=== PATIENT | female | born 1995 | race Hispanic/Latino ===

== ENCOUNTER 2025-01-06 21:31 | Emergency (ER) | payer BC ==
[~2025-01-06] VITALS: Ht 175.3 cm; Wt 95.3 kg
[2025-01-06 21:32] VITALS: TEMP 97.7
--- NOTE | 2025-01-06 21:36 | NUR ---
UA CUP PROVIDED
--- NOTE | 2025-01-06 21:37 | ERN ---
ED Note History of Present Illness Stated Complaint: LOWER ABD PAIN Time Seen by MD: 21:34 Dictation: PATIENT IS A 29-YEAR-OLD FEMALE HERE WITH A SUDDEN ONSET OF PERIUMBILICAL AND SUPRAPUBIC PAIN TENDERNESS ONSET 1 HOUR PRIOR TO ARRIVAL. SHE STATES SHE HAD BEEN OKAY DURING THE DAY WHEN THE ONSET OF THE PAIN OCCURRED. SHE DENIES FEVER CHILLS NAUSEA VOMITING. STATES SHE STILL HAS A OVARIES APPENDIX. STATES SHE HAD JUST SEEN HER [facility] DOCTOR TWO DAYS AGO AND Allergies: Coded Allergies: Penicillins (Unverified Allergy, Unknown, 01/06/25) Past Medical History History: Not Applicable RN Note Reviewed/Agreed w/PFSH: Yes Review of System Dictation CONSTITUTIONAL: NEGATIVE EXCEPT FOR HPI HEAD/FACE: NEGATIVE EXCEPT FOR HPI EENT: NEGATIVE EXCEPT FOR HPI RESPIRATORY: NEGATIVE EXCEPT FOR HPI GASTROINTESTINAL/ABDOMINAL: NEGATIVE EXCEPT FOR HPI PERIUMBILICAL PAIN GENITOURINARY: NEGATIVE EXCEPT FOR HPI MUSCULOSKELETAL: NEGATIVE EXCEPT FOR HPI INTEGUMENTARY: NEGATIVE EXCEPT FOR HPI NEUROLOGICAL/PSYCH: NEGATIVE EXCEPT FOR HPI HEMATOLOGIC/LYMPHATIC: NEGATIVE EXCEPT FOR HPI ALL SYSTEMS NEGATIVE, EXCEPT NOTED ABOVE. 13 POINT REVIEW OF SYSTEMS ASSESSED AND ALL NEGATIVE EXCEPT FOR ABOVE. Initial Vital Sign VS Vital Signs Date Time Temp Pulse Resp B/P (MAP) Pulse Ox O2 Delivery O2 Flow Rate FiO2 01/06/25 21:32 97.7 110 20 140/85 97 Room Air 01/06/25 23:03 0 21 Physical Exam Dictation VITAL SIGNS REVIEWED GENERAL APPEARANCE: ALERT, ORIENTED X 3, SEVERE ACUTE DISTRESS, WELL DEVELOPED, NOURISHED. HEAD AND FACE: NON-TRAUMATIC. EYES: PERRL, PINK CONJUNCTIVAS, EYELID NO TRAUMA, ANTERIOR CHAMBER WITH ARCUS SENILIS. EARS: PINNAS INTACT AND NO SIGNS OF TRAUMA OR ERYTHEMA EAR CANALS CLEAR AND NO DISCHARGE TM NO ERYTHEMA NOSE: NO DISCHARGE, NO BLEEDING. OROPHARYNX: MOUTH NORMAL, TONGUE PINK, PHARYNX CLEAR,NO ERYTHEMA, TONSILS NO EXUDATES, NO ABSCESSES NOTED, MUCOUS MEMBRANE MOIST NECK: SUPPLE, NON-TENDER, NO THYROMEGALY, NO MASSES, NO JVD, NO BRUITS BREAST:DEFERRED CHEST:NO TENDERNESS, NO CREPITUS, NO PARADOXICAL MOVEMENT, NO RETRACTIONS LUNGS:CLEAR, WELL-VENTILATED, SYMMETRIC, NO RALES, NO WHEEZING, NO RHONCHI, NO STRIDOR, GOOD BREATH SOUNDS BILATERALLY HEART: REGULAR RATE, REGULAR RHYTHM, NO MURMUR, NO GALLOPS VASCULAR: NO PERIPHERAL EDEMA, ABDOMEN: SOFT, POSITIVE BOWEL SOUNDS, NONDISTENDED, NO GUARDING, MODERATE PERIUMBILICAL AND SUPRAPUBIC PAIN TENDERNESS NEGATIVE REBOUND RECTAL: DEFERRED GENITAL: DEFERRED NEUROLOGICAL: NORMAL SPEECH, MOTOR FUNCTION INTACT, SENSORY FUNCTION INTACT MUSCULOSKELETAL: NECK NONTENDER, FULL RANGE OF MOTION, BACK NONTENDER, FULL RANGE OF MOTION, EXTREMITIES: NONTENDER, FULL RANGE OF MOTION SKIN: COLOR PINK, WHO ULCER TO LEFT LATERAL CALF. WOUND BED IS BEEFY RED DRESSING IN PLACE. PATIENT STATES SHE HAS A AN APPOINTMENT TOMORROW WITH WOUND CARE IN [facility] LYMPHATIC: DEFERRED Results (Laboratory/Radiology) Laboratory/Radiology Laboratory Tests Test 01/06/25 21:56 01/06/25 21:58 White Blood Count 17.5 K/uL (4.8-10.8) H Red Blood Count 4.26 MIL/uL (4.00-5.50) Hemoglobin 11.6 g/dL (12.0-16.0) L Hematocrit 36.1 % (36-48) Mean Corpuscular Volume 84.7 fL (79-99) Mean Corpuscular Hemoglobin 27.2 pg (27.0-33.0) Mean Corpuscular Hemoglobin Concent 32.1 g/dL (32.0-36.0) Red Cell Distribution Width 13.2 % (11.0-15.5) Platelet Count 333 K/uL (130-400) Mean Platelet Volume 9.4 fL (7.5-10.5) Immature Granulocyte % (Auto) 0.9 % (0-1) Neutrophils (%) (Auto) 83.8 % (40.0-77.0) H Lymphocytes (%) (Auto) 9.4 % (21.0-51.0) L Monocytes (%) (Auto) 4.3 % (3.0-13.0) Eosinophils (%) (Auto) 1.3 % (0.0-8.0) Basophils (%) (Auto) 0.3 % (0.0-5.0) Neutrophils # (Auto) 14.7 K/uL (1.8-7.7) H Lymphocytes # (Auto) 1.6 K/uL (1.0-4.8) Monocytes # (Auto) 0.8 K/uL (0.1-1.0) Eosinophils # (Auto) 0.23 K/uL (0.00-0.70) Basophils # (Auto) 0.05 K/uL (0.00-0.20) Absolute Immature Granulocyte (auto 0.16 K/uL (0-1) Nucleated Red Blood Cells 0.0 % (0.0-0.19) White Cell Morphology Comment See comments Sodium Level 139 mmol/L (136-145) Potassium Level 3.7 mmol/L (3.5-5.1) Chloride Level 101 mmol/L (101-111) Carbon Dioxide Level 24 mmol/L (21-32) Blood Urea Nitrogen 15 mg/dL (7-18) Creatinine 1.1 mg/dL (0.5-1.0) H Glomerular Filtration Rate Calc 69 mL/min (>90) Random Glucose 195 mg/dL (70-105) H Total Calcium 9.3 mg/dL (8.5-10.1) Lipase 21 U/L (16-77) Urine Color LIGHT-YELLOW (YELLOW) Urine Appearance CLEAR (CLEAR) Urine pH 6.5 (5.0-8.0) Urine Specific [place] 1.039 (1.001-1.031) Urine Protein 10 mg/dL (NEGATIVE) H Urine Glucose (UA) >=1000 mg/dL (NEGATIVE) H Urine Ketones NEGATIVE mg/dL (NEGATIVE) Urine Occult Blood MODERATE (NEGATIVE) H Urine Nitrate NEGATIVE (NEGATIVE) Urine Bilirubin NEGATIVE mg/dL (NEGATIVE) Urine Urobilinogen 0.2 mg/dL (0.2-1.0) Urine Leukocyte Esterase 75 Ralph/uL (NEGATIVE) H Urine RBC 26-50 /HPF (0-1) H Urine WBC 11-25 /HPF (0-1) H Urine Squamous Epithelial Cells FEW /HPF (0-2) Urine Bacteria RARE /HPF (None Seen) Urine Other Casts 1 /LPF (None Seen) Urine Yeast RARE /HPF (None Seen) Urine HCG, Qualitative NEGATIVE (NEGATIVE) CT ABDOMEN/PELVIS W/CONTRAST HISTORY: Acute onset periumbilical pain COMPARISON: None TECHNIQUE: Multiple sequential axial images of the abdomen and pelvis were obtained from the dome of the diaphragm through symphysis pubis. Patient was not given contrast through intravenous route. Oral contrast was not given. FINDINGS: No pleural effusion is seen bilaterally. There is no evidence of parenchymal disease or pulmonary nodule of the visualized lower lungs. Degenerative changes of the thoracolumbar spine are present. The heart is not enlarged. Liver is enlarged measuring 20 cm. The liver, spleen, adrenal glands and pancreas are unremarkable. There is no evidence of hydronephrosis bilaterally. No evidence of renal stone is seen. Fecal material is seen in the colon. There are normal size retroperitoneal and mesenteric lymph nodes. No ascites is seen. No CT evidence of acute appendicitis. There is T-shaped intrauterine device. There is left ovarian cyst measuring 3 cm. Pelvic sidewalls are symmetric bilaterally. Bladder is poorly distended. IMPRESSION: 1. No acute findings. Labs Reviewed?: Yes ED Course ED Course Orders Procedure Category Date Status Time Cbc With Differential LAB 01/06/25 Complete : ,Urine Test LAB 01/06/25 Complete 21: Urinalysis Profile LAB 01/06/25 Complete 21:35 Ct Abdomen/Pelvis CT 01/06/25 Resulted W/Contrast 21:35 0.9%Nacl 1000ml (Ns PHA 01/06/25 Complete 1000ml) 22:00 Morphine 4mg Syg PHA 01/06/25 Complete (Morphine 4mg Syg) 22:00 Ondansetron 4mg Inj PHA 01/06/25 Complete (Zofran 4mg Inj) 22:00 Lipase LAB 01/06/25 Complete 21:35 Basic Metabolic Panel LAB 01/06/25 Complete 21:35 Culture Urine PATRICIA 01/06/25 In Process 22:10 Levofloxacin 750 PHA 01/06/25 Complete Mg/D5w 150 Ml 22:30 Iohexol (Omnipaque) PHA 01/06/25 Complete 23:08 Current Medications Medications (Trade) Dose Ordered Sig/Keesha Route PRN Reason Start Time Stop Time Status Last Admin Dose Admin Iohexol (Omnipaque) 75 ml STK-MED ONCE IV 01/06/25 23:08 01/06/25 23:09 DC Levofloxacin/ Dextrose (LEvaquIN 750 MG/ D5W 150 ML) 750 mg ONCE ONCE IV 01/06/25 22:30 01/06/25 22:31 DC 01/06/25 23:35 Morphine Sulfate (morPHINE 4MG SYG) 4 mg ONCE ONCE IVP 01/06/25 22:00 01/06/25 22:01 DC 01/06/25 23:03 Ondansetron HCl (zoFRAN 4MG INJ) 4 mg ONCE ONCE IVP 01/06/25 22:00 01/06/25 22:01 DC 01/06/25 23:03 Sodium Chloride 1,000 ml @ 0 mls/hr ONCE ONCE IV 01/06/25 22:00 01/06/25 22:01 DC 01/06/25 23:04 Vital Signs Date Time Temp Pulse Resp B/P (MAP) Pulse Ox O2 Delivery O2 Flow Rate FiO2 01/06/25 23:03 107 18 147/67 98 Room Air* 0 21 01/06/25 21:32 97.7 110 20 140/85 97 Room Air 0040/PATIENT IS CAT SCAN IS NEGATIVE NO ABDOMINAL INFECTION SHE STATES SHE HAS A WOUND CARE APPOINTMENT TOMORROW IN [facility] AT [facility] TO SEE HER SNAPPER ON AND INFECTIOUS DISEASE FOR A PICC LINE AND BROAD- S[employer] ANTIBIOTICS. SHE WISHES TO BE DISCHARGED I STRONGLY ADVISED HER TO GO SEE HER DOCTOR TOMORROW AND KEEP HER APPOINTMENT AT 11:30 WITH THE INFECTIOUS DISEASE SPECIALIST. Medical Decision Making MDM MDM: DIFFERENTIAL DIAGNOSIS: APPENDICITIS VERSUS DIVERTICULITIS/UTI/ECTOPIC /SEPSIS/DEHYDRATION/ELECTROLYTE IMBALANCE RATIONALE: TESTS CONSIDERED AND ORDERED SECONDARY TO SHARED DECISION MAKING INCLUDE: LABS/RADIOLOGY PREVIOUS OUTSIDE RECORDS REVIEWED: OLD ER VISITS. RISK OF COMPLICATION AND/OR MORBIDITY OR MORTALITY OF PATIENT MANAGEMENT: NONE MEDICATIONS-PER MEDICATION RECONCILIATION NEED FOR HOSPITALIZATION: PATIENT DOES NOT MEET CRITERIA FOR HOSPITALIZATION. PATIENT REFUSES ADMISSION STATES SHE HAS A AN APPOINTMENT AT [facility] TOMORROW FOR INFECTIOUS DISEASE AND PICC LINE NEED FOR EMERGENCY MAJOR/MINOR SURGERY: NO THERE ARE NO SOCIAL CONCERNS WITH THIS PATIENT. PRESCRIPTION DRUG MANAGEMENT PRESCRIPTIONS WILL INCLUDE SYMPTOMATIC CARE PATIENT'S PRIOR EXTERNAL MEDICAL RECORDS FROM OTHER ER VISITS WERE REVIEWED BY ME INDICATED. PRIOR TESTING AND RESULTS FROM PREVIOUS VISITS WERE REVIEWED. PRIOR TESTS WERE TAKEN INTO ACCOUNT WITH MEDICAL DECISION MAKING AND RESOURCE UTILIZATION, INDEPENDENT HISTORIAN/HISTORIANS WERE USED TO OBTAIN COMPLETE MEDICAL HISTORY. I INDEPENDENTLY INTERPRETED THE TEST THAT WERE PERFORMED, RESULTS WERE REVIEWED BY ME AND CONSIDERED FINDINGS ON RADIOLOGY IF ORDERED. MEDICAL MANAGEMENT AND EXAMINATION INTERPRETATION DISCUSSIONS WERE HAD BY ME WITH OTHER QUALIFIED HEALTHCARE PROFESSIONALS INDICATED FOR THE PATIENT'S CARE. DX & DISP Disposition: Discharge Departure Impression: Primary Impression: Chronic ulcer of left calf Additional Impressions: Leukocytosis, Abdominal cramps Condition: Stable Scripts Dicyclomine HCl (Bentyl) 20 Mg Tab 1 TAB PO QIDP for ABDOMINAL CRAMPS, #60 TAB 0 Refills Prov: HEATHER OAKES CELL STRIPPER FINAL 01/07/25 Additional Instructions: FOLLOW-UP WITH PRIMARY CARE PROVIDER IN 1 TO 2 DAYS. TAKE MEDICATIONS DIRECTED HERE IN THE EMERGENCY ROOM. OKAY TO CONTINUE HOME MEDICATIONS UNLESS OTHERWISE DISCUSSED DURING YOUR VISIT IN THE EMERGENCY ROOM TODAY. RETURN TO YOUR NEAREST EMERGENCY ROOM IF SYMPTOMS WORSEN OR IF THERE IS NO IMPROVEMENT. CALL 911 IF YOU NEED IMMEDIATE ASSISTANCE. TAKE TYLENOL OR MOTRIN [id number] NEEDED AND IF NO CONTRAINDICATIONS ARE PRESENT. INCREASE ORAL HYDRATION. A WOUND CULTURE OR URINE CULTURE WAS ORDERED HERE IN THE EMERGENCY ROOM DEPARTMENT PLEASE FOLLOW-UP WITH PRIMARY CARE PROVIDER AND ADVISE THEM TO GET REPEAT PORTS FROM OUR FACILITY. IF YOU HAD ANY YULIYA WRAP/SPLINTS THAT WERE APPLIED HERE, PLEASE DO NOT REMOVE THEM UNTIL YOU SEE YOUR PRIMARY CARE OR SPECIALTY. TAKE BENTYL DIRECTED FOR ABDOMINAL CRAMPING. KEEP YOUR APPOINTMENT WITH YOUR INFECTIOUS DISEASE SPECIALIST TOMORROW AT 11:30 FOR FOLLOW UP ON YOUR LEG ULCER. Time of Disposition: 00:44 I have reviewed the case, and I agree with, Diagnosis and Plan HEATHER AOKES NP Jan 06, 2025 21:37
[2025-01-06 22:04] LABS: BASOPHILS # (AUTO) 0.05 K/uL (0.00-0.20); BASOPHILS % (AUTO) 0.3 % (0.0-5.0); EOSINOPHILS # (AUTO) 0.23 K/uL (0.00-0.70); EOSINOPHILS % (AUTO) 1.3 % (0.0-8.0); HEMATOCRIT 36.1 % (36-48); IMMATURE GRANULOCYTE ABSOLUTE 0.16 K/uL (0-1); LYMPHOCYTES # (AUTO) 1.6 K/uL (1.0-4.8); LYMPHOCYTES % (AUTO) 9.4 % (21.0-51.0); MEAN CORPUSCULAR HEMOGLOBIN 27.2 pg (27.0-33.0); MEAN CORPUSCULAR HGB CONC 32.1 g/dL (32.0-36.0); MEAN CORPUSCULAR VOLUME 84.7 fL (79-99); MONOCYTES # (AUTO) 0.8 K/uL (0.1-1.0); MONOCYTES % (AUTO) 4.3 % (3.0-13.0); NEUTROPHILS # (AUTO) 14.7 K/uL (1.8-7.7); NEUTROPHILS % (AUTO) 83.8 % (40.0-77.0); PLATELET COUNT (AUTO) 333 K/uL (130-400); RED BLOOD CELL COUNT(AUTO) 4.26 MIL/uL (4.00-5.50); RED CELL DISTRIBUTION WIDTH 13.2 % (11.0-15.5); WHITE BLOOD COUNT (AUTO) 17.5 K/uL (4.8-10.8)
[2025-01-06 22:08] LABS: APPEARANCE,URINE CLEAR (CLEAR); BILIRUBIN,URINE NEGATIVE (NEGATIVE); COLOR,URINE LIGHT-YELLOW (YELLOW); GLUCOSE, URINE (UA) >=1000 mg/dL (NEGATIVE); KETONES,URINE NEGATIVE (NEGATIVE); LEUKOCYTE ESTERASE ,URINE 75 Leu/uL (NEGATIVE); NITRATE,URINE NEGATIVE (NEGATIVE); OCCULT BLOOD,URINE MODERATE (NEGATIVE); PH,URINE 6.5 (5.0-8.0); PROTEIN,URINE 10 mg/dL (NEGATIVE); UROBILINOGEN,URINE 0.2 mg/dL (0.2-1.0)
[2025-01-06 22:09] LABS: ADD UA MICROSCOPIC YES
[2025-01-06 22:11] LABS: BACTERIA,URINE RARE /HPF (None Seen); HCG,QUALITATIVE URINE NEGATIVE (NEGATIVE); MUCUS,URINE RARE LPF (None Seen); OTHER CASTS, URINE 1 /LPF (None Seen); RBC,URINE 26-50 /HPF (0-1); SQUAMOUS EPITHELIAL CELL,UR FEW /HPF (0-2); YEAST,URINE BUDDING RARE /HPF (None Seen)
[2025-01-06 22:12] LABS: CREATININE 1.1 mg/dL (0.5-1.0); POTASSIUM 3.7 mmol/L (3.5-5.1)
[2025-01-06] MEDS: morPHINE 4 MG SYG IVP ONE (23:03)
[2025-01-06] MEDS: ondanSETRON 4MG INJ IVP ONE (23:03)
[2025-01-06] MEDS: 0.9%NACL 1000ML 1,000 ML IV ONE (23:04)
[2025-01-06] MEDS ORDERED: IOHEXOL-350 75 ML VIAL IV ONE (23:08)
--- NOTE | 2025-01-06 23:11 | NUR ---
PT TO CT AT THIS TIME.
[2025-01-06] MEDS: levoFLOXacin 750 MG/D5W 150ML BAG IV ONE (23:35)
--- NOTE | 2025-01-07 00:23 | HMCIMG ---
CT ABDOMEN/PELVIS W/CONTRAST HISTORY: Acute onset periumbilical pain COMPARISON: None TECHNIQUE: Multiple sequential axial images of the abdomen and pelvis were obtained from the dome of the diaphragm through symphysis pubis. Patient was not given contrast through intravenous route. Oral contrast was not given. FINDINGS: No pleural effusion is seen bilaterally. There is no evidence of parenchymal disease or pulmonary nodule of the visualized lower lungs. Degenerative changes of the thoracolumbar spine are present. The heart is not enlarged. Liver is enlarged measuring 20 cm. The liver, spleen, adrenal glands and pancreas are unremarkable. There is no evidence of hydronephrosis bilaterally. No evidence of renal stone is seen. Fecal material is seen in the colon. There are normal size retroperitoneal and mesenteric lymph nodes. No ascites is seen. No CT evidence of acute appendicitis. There is T-shaped intrauterine device. There is left ovarian cyst measuring 3 cm. Pelvic sidewalls are symmetric bilaterally. Bladder is poorly distended. IMPRESSION: 1. No acute findings. CT was performed with one or more following dose reduction techniques: automated exposure control, adjustment of the mA and kv according to patient's size, or use of a iterative reconstruction technique.
[2025-01-07] MEDS ORDERED: DICY20TA2 PO (00:46)
[2025-01-07 00:57] VITALS: BP 158/84; PULSE 88; RESP 16; O2SAT 98
== END 2025-01-07 01:14 | disposition home or self-care (01) ==
LOC: EDH 21:31
DX: L98.499 Non-pressure chronic ulcer of skin of other sites with unspecified severity (principal); L97.229 Non-pressure chronic ulcer of left calf with unspecified severity; D72.829 Elevated white blood cell count, unspecified; R10.2 Pelvic and perineal pain; Z88.0 Allergy status to penicillin
CPT/HCPCS: 99284; 74177; 96374; 96375; 96361; 80048; 83690; 85025; 87086; 81001; 81025; 36415; J1956; J7030; J2405; J2270; Q9967